=== PATIENT | female | born 2000 | race African-American/Black ===

== ENCOUNTER 2020-02-05 15:47 | Emergency (ER) | payer OTHER, SELFPAY ==
--- NOTE | ~2020-02-05 | XR_ITS ---
XR finger 2nd LT min 2V 02/05/2020 16:22 INDICATION: Patient cut distal tip of the left second digit with hedge cutter. PROCEDURE: 4 views left second finger COMPARISON: No prior studies for comparison. FINDINGS: Fracture, dislocation or subluxation is not identified. There is mild soft tissue deformity of the tuft of the second finger. No underlying osseous abnormality is seen. The soft tissues appear within normal limits. No foreign bodies are identified. IMPRESSION: 1: NO ACUTE BONE OR JOINT ABNORMALITY IDENTIFIED. Reviewed, dictated and finalized at location A.
[2020-02-05 15:52] VITALS: BP 160/102; PULSE 84; RESP 20; TEMP 36.9; O2SAT 100
[2020-02-05] MEDS: TETANUS,DIPHTHERIA,AC PERTUSSIS ADULT (0.5 ML) BOOSTRIX IM (16:06)
[2020-02-05] MEDS: IBUPROFEN 600 MG TABLET PO (16:07)
--- NOTE | 2020-02-05 16:16 | ED.GENADULT ---
HPI - General Adult General Chief complaint: Wound/Laceration <Félix Treadwell PA-C - Last Filed: 02/05/20 17:12> Stated complaint: finger laceration <MIKAELA [place] Last Filed: 02/05/20 17:12> Time Seen by Provider: 02/05/20 15:49 <Félix Treadwell PA-C - Last Filed: 02/05/20 17:12> Source: patient <Félix Treadwell PA-C - Last Filed: 02/05/20 17:12> Mode of arrival: ambulatory <Félix Treadwell PA-C - Last Filed: 02/05/20 17:12> Limitations: no limitations <Félix Treadwell PA-C - Last Filed: 02/05/20 17:12> History of Present Illness HPI narrative: Patient is a 19-year-old female who presents to emergency department for evaluation of injury to the left index finger distal tip where she avulsed some tissue while using a hedge tremor patient notes aching pain worse with touch presents in no distress is unsure to her tetanus status denies other complaints or concerns and is in the room in no distress upon arrival <Félix Treadwell PA-C - Last Filed: 02/05/20 17:12> Related Data Home medications: Home Medications Medication Instructions Recorded Confirmed No Home Medications 02/05/20 02/05/20 <Félix Treadwell PA-C - Last Filed: 02/05/20 17:12> Allergies/adverse reactions: Allergies Allergy/AdvReac Type Severity Reaction Status Date / Time No Known Allergies Allergy Verified 02/05/20 16:01 <Félix Treadwell PA-C - Last Filed: 02/05/20 17:12> Review of Systems Review of Systems: All systems reviewed & are unremarkable except as noted in HPI and below <Félix Treadwell PA-C - Last Filed: 02/05/20 17:12> PMFSH Social History Social History: Social History (Updated 02/05/20 @ 16:17 by Félix Treadwell PA-C) Smoking status: Never smoker Gender identity (if verbalized by the patient): Female <Félix Treadwell PA-C - Last Filed: 02/05/20 17:12> Exam Narrative: Exam Narrative: GENERAL: Well-appearing, well-nourished, and in no acute distress. HEAD: Normocephalic, atraumatic. EYES: PERRLA and EOMI. ENT: Nares clear, no rhinorrhea or epistaxis. Mucous membranes moist. EXTREMITIES: Normal range of motion. No edema. Half centimeter superficial skin defect of the distal tip of the left index finger. Small abrasion that is a superficial wound along the lateral aspect of the third digit distal phalanx SKIN: Warm, dry, no rash. NEURO: No focal deficits. Alert and oriented x3. Neurovascularly intact. Capillary refill less than 2 seconds PSYCH: Normal mood and affect. <Félix Treadwell PA-C - Last Filed: 02/05/20 17:12> Course Vital Signs Vital signs: Vital Signs Temperature 98.4 F 02/05/20 15:52 Pulse Rate 84 02/05/20 15:52 Respiratory Rate 02/05/20 15:52 Blood Pressure 160/102 H 02/05/20 15:52 Pulse Oximetry 100 02/05/20 15:52 Temperature 98.4 F 02/05/20 15:52 Pulse Rate 84 02/05/20 15:52 Respiratory Rate 02/05/20 15:52 Blood Pressure 160/102 H 02/05/20 15:52 Pulse Oximetry 100 02/05/20 15:52 <Félix Treadwell PA-C - Last Filed: 02/05/20 17:12> Vital Signs Temperature 98.4 F 02/05/20 15:52 Pulse Rate 84 02/05/20 15:52 Respiratory Rate 02/05/20 15:52 Blood Pressure 160/102 H 02/05/20 15:52 Pulse Oximetry 100 02/05/20 15:52 Temperature 98.4 F 02/05/20 15:52 Pulse Rate 84 02/05/20 15:52 Respiratory Rate 02/05/20 15:52 Blood Pressure 160/102 H 02/05/20 15:52 Pulse Oximetry 100 02/05/20 15:52 <Annita Iqbal MD - Last Filed: 02/05/20 17:17> Procedures Other Procedure Procedure 1: Other Procedure: Wound was cleaned with Shur-Clens scrub with antibiotic ointment nonadhesive 4 x 4 and Coban placed post procedure <Félix Treadwell PA-C - Last Filed: 02/05/20 17:12> Medical Decision Making MDM Narrative Medical decision making narrative: Patients injury or pain is consistent with musculoskeletal etio
[2020-02-05 17:39] VITALS: BP 129/91; PULSE 75; RESP 20; O2SAT 96
== END 2020-02-05 17:41 | disposition home or self-care (01) ==
PROVIDERS: Emergency Provider Emergency Medicine; PCP Pediatrics
DX: S61.201A Unspecified open wound of left index finger without damage to nail, initial encounter (principal); Z23 Encounter for immunization; W29.3XXA Contact with powered garden and outdoor hand tools and machinery, initial encounter
CPT/HCPCS: 73140; 90471; 90714; 90715; 99282; A9270

== ENCOUNTER 2023-08-29 08:52 | Emergency (ER) | payer OTHER, SELFPAY ==
[2023-08-29] VITALS (18 sets, daily range): BP systolic 123–138; BP diastolic 62–91; PULSE 70–98; RESP 13–20; TEMP 36.8; O2SAT 95–100
--- NOTE | ~2023-08-29 | US_ITS ---
EXAMINATION: US OB <=14 wk fetus w TV DATE: 08/29/2023 13:06 INDICATION: Threatened miscarriage TECHNIQUE: Real-time pelvic ultrasound utilizing both a transvaginal and transabdominal probe was pe rformed. The interpreting radiologist was not present for the study. COMPARISON: None. FINDINGS: The uterus measures 8.2 x 4.2 x 5.5 cm. There is an intrauterine gestational sac. A yolk sac and fet al pole are identified. The crown rump length measures 1.5 cm, which correlates with an estimated ges tational age of 7 weeks and 6 days. heart motion is identified measuring 159 beats per minute ( bpm) by M-mode Doppler. There is an 11 x 6 x 5 mm hypoechoic fluid collection situated between the ca udal margin of the gestational sac and the cervix which could represent blood in the setting of a sub chorionic hemorrhage. The cervical length measures 3.6 cm which is normal. There is a minimal amount of additional hypoechoic fluid likely representing blood within the endocervical canal. The right ova ry measures 3.3 x 1.6 x 1.6 cm. The left ovary measures 3.5 x 2.0 x 2.0 cm. There are a few subcentim eter anechoic follicles along with internal vascular flow on color Doppler at both ovaries. There is no free fluid in the pelvis. IMPRESSION: 1. Single living fetus with heart rate of 159 bpm. 2. Gestational age by ultrasound of 7 weeks 6 day(s) +/- 5 day(s) with ultrasound estimated date of delivery (DYLAN) of 04/10/2024. 3. Small subchorionic hematoma along the inferior margin of the gestational sac and a small amount of likely blood within the endocervical canal. Reviewed, dictated and finalized at location A. [facility] [employer] [facility] IMPRESSION: 1. Single living fetus with heart rate of 159 bpm. 2. Gestational age by ultrasound of 7 weeks 6 day(s) +/- 5 day(s) with ultraso und estimated date of delivery (DYLAN) of 04/10/2024. 3. Small subchorionic hematoma along the inferior margin of the gestational sac and a small amount of likely blood within the endocervical canal.
--- NOTE | 2023-08-29 10:41 | ED.FEMALEGU ---
HPI - Female Genitourinary General Chief complaint: Vaginal Bleeding Stated complaint: vag bleed, preg, n/v Time Seen by Provider: 08/29/23 10:33 Source: patient Mode of arrival: ambulatory Limitations: no limitations History of Present Illness HPI Narrative: Queta is a 23-year-old female patient presenting to the ER today with complaints of vaginal bleeding-spotting with nausea/vomiting. Patient reports she is 9 weeks . Does have slight abdomen cramping. No fever, chills, body aches, or urinary symptoms. Related Data Home Medications Medication Instructions Recorded Confirmed No Home Medications 02/05/20 02/05/20 Allergies Allergy/AdvReac Type Severity Reaction Status Date / Time No Known Allergies Allergy Verified 02/05/20 16:01 Review of Systems Review of Systems: Pertinent positives per HPI. Patient denies any fever, chills, rash, headache, visual changes, dizziness, cough, runny nose, sore throat, shortness of breath, chest pain, palpitations, nausea, vomiting, diarrhea, constipation, or any urinary issues. [facility] Social History Social History (Updated 02/05/20 @ 16:17 by Félix Treadwell, PAM[place]) Smoking status: Never smoker Gender identity (if verbalized by the patient): Female Comments At the time of my signature, I reviewed and agree with the nursing past medical, surgical, social, and family history. There is no relevant family history pertinent to the patient complaint. Exam Narrative: General: Well-developed, well nourished, in no apparent distress. Head: Normocephalic, atraumatic. Cardio: Regular rate and rhythm, s1 and s2 normal, no murmur appreciated. Resp: Clear to auscultation bilaterally, no rhonchi, rales, wheezing or rubs. Abdomen: Soft, pliable, bowel sounds present in all quadrants, very mild tenderness to the lower abdomen/pelvis, no organomegly, no CVAT tenderness. Course Course Emergency Course: Portions of this record may have been created with voice recognition software. Vital Signs Vital signs: Vital Signs Temperature 36.8 C 08/29/23 09:09 Pulse Rate 94 08/29/23 09:09 Respiratory Rate 16 08/29/23 09:09 Blood Pressure 138/91 H 08/29/23 09:09 Pulse Oximetry 100 08/29/23 09:09 Temperature 36.8 C 08/29/23 09:09 Pulse Rate 87 08/29/23 13:32 Respiratory Rate 20 08/29/23 13:32 Blood Pressure 126/62 08/29/23 13:32 Pulse Oximetry 100 08/29/23 13:32 Vital signs reviewed MDM - Female Genitourinary MDM Narrative Medical decision making narrative: At the time of visit patient is resting comfortably on the exam table. Patient appears to be nontoxic. Patient is having vaginal bleeding/spotting with some light cramping. Is approximately 9 weeks Labs: CBC shows 11.1 white blood cell count, H&H 12.5-39.7, platelet counts 310. CMP shows sodium of 137, potassium at 3.8, chloride 105, BUN 6, creatinine 0.5, liver function tests are normal. Beta hCG is 90,149. Blood type is O-positive with a negative antibody screen. Diagnostics: Vaginal ultrasound shows a single living fetus with a heart rate of 159. Estimated gestational date is 7 weeks and 5 days. Small subchorionic hematoma along the inferior margin of the gestational sac Pelvic exam was performed and shows no active bleeding at this time Plan: Discharge home on pelvic rest. Recommend follow-up with OBGYN as soon as possible. Supportive measures were discussed with the patient and they voiced understanding discharge instructions and agrees to treatment plan. Strict return precautions reviewed Differential Diagnosis Differential diagnosis: Likely urinary tract infection, cystitis and other (Threatened miscarriage, vaginal bleeding during , pelvic pain,) Lab Data 08/29/23 10:59 08/29/23 10:59 Labs: Lab Results 08/29/23 Range/Units 10:59 WBC 11.1 H (4.5-10.0) K/mm3 RBC 4.20 (4.2-5.4) M/mm3 Hgb 12.5
[2023-08-29] MEDS: SODIUM CHLORIDE 0.9% IV 1,000 ML 999 ML IV CONT (11:08)
[2023-08-29] MEDS: ONDANSETRON INJ 4 MG/2 ML VIAL IV PUSH (11:08)
[2023-08-29 11:12] LABS: Basophils Percent Auto 0.3 % (0.2-1.2); Eosinophils Percent Auto 0.1 % (0-4.4); Hematocrit 39.7 % (37.0-47.0); Hemoglobin 12.5 g/dL (12.0-15.0); Immature Granulocyte Absolute 0.05 K/mm3 (0.00-0.031); Immature Granulocyte Percent A 0.4 % (0-0.5); Lymphocytes Absolute Auto 2.13 K/mm3 (0.9-3.2); Lymphocytes Percent Auto 19.2 % (18.3-44.2); Mean Corpuscular HGB Conc 31.5 g/dl (32-36); Mean Corpuscular Hemoglobin 29.8 pg (26-34); Mean Corpuscular Volume 94.5 fl (80-100); Mean Platelet Volume 9.7 fl (7.4-10.4); Monocytes Absolute Auto 0.7 K/mm3 (0.1-0.6); Monocytes Percent Auto 6.6 % (2.6-8.5); Neutrophils Absolute Auto 8.2 K/mm3 (1.3-6.7); Neutrophils Percent Auto 73.4 % (45.5-73.1); Platelet Count Result 310 k/mm3 (150-375); Red Cell Distribution Width 12.2 % (11.5-14.5); White Blood Count 11.1 K/mm3 (4.5-10.0)
[2023-08-29 11:23] LABS: Alanine Aminotransferase 18 U/L (6-35); Alkaline Phosphatase 95 U/L (38-126); Anion Gap 9 mmol/L (8-16); Aspartate Amino Transferase 20 U/L (14-36); Bilirubin,Total 0.9 mg/dL (0.2-1.3); Blood Urea Nitrogen 6 mg/dL (7-17); Calcium 8.8 mg/dL (8.4-10.2); Carbon Dioxide 23 mmol/L (22-30); Chloride 105 mmol/L (98-107); Estimated CRCL calculation 153 ml/min; Estimated Glomerular Filt Rate > 60; Glucose 81 mg/dL (65-110); Potassium 3.8 mmol/L (3.4-5.0); Sodium 137 mmol/L (137-145)
== END 2023-08-29 13:53 | disposition home or self-care (01) ==
PROVIDERS: Emergency Provider Nurse Practitioner Family; PCP Nurse Practitioner Family
DX: O20.9 Hemorrhage in early pregnancy, unspecified (principal); Z3A.09 9 weeks gestation of pregnancy
CPT/HCPCS: 36415; 76801; 76817; 80053; 84702; 85025; 85461; 86850; 86900; 86901; 96361; 96374; 99284; J2405; J7030

== ENCOUNTER 2023-09-26 12:02 | Emergency (ER) | payer OTHER, SELFPAY ==
[2023-09-26] VITALS (11 sets, daily range): BP systolic 105–138; BP diastolic 52–86; PULSE 67–94; RESP 14–20; TEMP 36.6; O2SAT 98–100
--- NOTE | 2023-09-26 12:11 | ED.NAVMDI ---
HPI - Nausea/Vomiting/Diarrhea General Chief complaint: Nausea/Vomiting/Diarrhea Stated complaint: NV, Time Seen by Provider: 09/26/23 12:11 Source: patient Mode of arrival: ambulatory Limitations: no limitations History of Present Illness HPI Narrative: 23 years old female drove herself to the emergency room complaining of nausea and frequent vomiting for the last few days/ weeks. Patient is 11 week , denies any abdominal pain, vaginal bleeding or discharge. Patient used to be on Zofran, run out of it 5 days ago. She denies any fever or chills or diarrhea. Related Data Allergies Allergy/AdvReac Type Severity Reaction Status Date / Time No Known Allergies Allergy Verified 02/05/20 16:01 Review of Systems Review of Systems: All systems reviewed & are unremarkable except as noted in HPI and below PMFSH Social History Social History Smoking status: Never smoker Gender identity (if verbalized by the patient): Female Exam Narrative: General appearance: Well-developed, well-nourished Skin: Normal color Head: Normocephalic, nontraumatic Eyes: Clear conjunctiva ENT: Oropharynx normal, ears normal, nose normal Neck: Supple, nontender Chest and respiratory: Airway patent, no respiratory distress, no accessory muscle use Heart: Regular rate/rhythm Abdomen: Soft, nontender, no organomegaly, quiet bowel sounds Vascular: Normal peripheral pulses, normal capillary refill. Musculoskeletal: Normal range of motion, nontender back Neurologic: Alert and oriented ?3, [employer] is normal as tested, no gross motor deficit Course Reevaluation(s) Reevaluation #1: Feeling much better after IV fluid, patient is able to keep fluid and crackers down, feels great to go home. Date: 09/26/23 Time: 14:43 Vital Signs Vital signs: Vital Signs Temperature 36.6 C 09/26/23 12:05 Pulse Rate 94 09/26/23 12:05 Respiratory Rate 20 09/26/23 12:05 Blood Pressure 138/86 09/26/23 12:05 Pulse Oximetry 100 09/26/23 12:05 Oxygen Delivery Room Air 09/26/23 12:05 Temperature 36.6 C 09/26/23 12:05 Pulse Rate 67 09/26/23 12:30 Respiratory Rate 14 09/26/23 12:30 Blood Pressure 114/66 09/26/23 12:40 Pulse Oximetry 100 09/26/23 12:40 Oxygen Delivery Room Air 09/26/23 12:05 MDM - Nausea/Vomiting/Diarrhea MDM Narrative Medical decision making narrative: General appearance: Well-developed, well-nourished Skin: Normal color Head: Normocephalic, nontraumatic Eyes: Clear conjunctiva ENT: Oropharynx normal, ears normal, nose normal Neck: Supple, nontender Chest and respiratory: Airway patent, no respiratory distress, no accessory muscle use Heart: Regular rate/rhythm Abdomen: Soft, nontender, no organomegaly, quiet bowel sounds Vascular: Normal peripheral pulses, normal capillary refill. Musculoskeletal: Normal range of motion, nontender back Neurologic: Alert and oriented ?3, [employer] is normal as tested, no gross motor deficit Differential Diagnosis Differential diagnosis: Likely other ( Electrolyte imbalance, dehydration, urinary tract infection) Medical Records Attestation: I reviewed the patient's medical records. Lab Data Attestation: I reviewed the patient's lab results. 09/26/23 12:18 09/26/23 12:18 Labs: Lab Results
[2023-09-26 12:24] LABS: Basophils Percent Auto 0.2 % (0.2-1.2); Hematocrit 38.6 % (37.0-47.0); Hemoglobin 12.4 g/dL (12.0-15.0); Immature Granulocyte Absolute 0.03 K/mm3 (0.00-0.031); Immature Granulocyte Percent A 0.3 % (0-0.5); Lymphocytes Absolute Auto 1.48 K/mm3 (0.9-3.2); Lymphocytes Percent Auto 15.3 % (18.3-44.2); Mean Corpuscular HGB Conc 32.1 g/dl (32-36); Mean Corpuscular Volume 93.2 fl (80-100); Mean Platelet Volume 9.4 fl (7.4-10.4); Monocytes Absolute Auto 0.5 K/mm3 (0.1-0.6); Monocytes Percent Auto 5.6 % (2.6-8.5); Neutrophils Absolute Auto 7.6 K/mm3 (1.3-6.7); Neutrophils Percent Auto 78.6 % (45.5-73.1); Platelet Count Result 317 k/mm3 (150-375); Red Blood Count 4.14 M/mm3 (4.2-5.4); Red Cell Distribution Width 12.1 % (11.5-14.5); White Blood Count 9.7 K/mm3 (4.5-10.0)
[2023-09-26] MEDS: ONDANSETRON INJ 4 MG/2 ML VIAL 8 MG IV PUSH (12:24)
[2023-09-26] MEDS: SODIUM CHLORIDE 0.9% IV 1,000 ML 999 ML IV CONT ×2 (12:24)
[2023-09-26 12:35] LABS: Alanine Aminotransferase 14 U/L (6-35); Albumin Level 3.9 g/dL (3.5-5.1); Alkaline Phosphatase 81 U/L (38-126); Anion Gap 8 mmol/L (8-16); Aspartate Amino Transferase 19 U/L (14-36); Bilirubin,Total 0.9 mg/dL (0.2-1.3); Blood Urea Nitrogen 6 mg/dL (7-17); Calcium 9.2 mg/dL (8.4-10.2); Carbon Dioxide 23 mmol/L (22-30); Chloride 106 mmol/L (98-107); Estimated Glomerular Filt Rate > 60; Glucose 92 mg/dL (65-110); Lipase 220 U/L (23-300); Potassium 3.7 mmol/L (3.4-5.0); Sodium 137 mmol/L (137-145)
[2023-09-26 12:42] LABS: Appearance Urine Cloudy (Clear); Bacteria Urine 4+ /hpf; Bilirubin Urine Negative (Negative); Blood Urine Negative (Negative); Color Urine Dark Yellow (Yellow); Glucose Urine UA Negative (Negative); Ketones Urine 1+ mg/dL (Negative); Leukocyte Esterase Ur 1+ LEU/UL (Negative); Nitrate Urine Negative (Negative); Protein Urine 1+ mg/dL (Negative); RBC Urine 0-2 /hpf (0-2); Specific Grav Ur 1.031 (1.001-1.035); Squamous Epithelial Cell Urine Many /hpf (Few)
[2023-09-26 12:44] LABS: Add Urine Microscopic? YES
== END 2023-09-26 14:36 | disposition home or self-care (01) ==
PROVIDERS: Emergency Medicine; Emergency Provider Emergency Medicine; PCP Nurse Practitioner Family
DX: O21.0 Mild hyperemesis gravidarum (principal); Z3A.11 11 weeks gestation of pregnancy; Z91.148 Patient's other noncompliance with medication regimen for other reason; T45.0X6A Underdosing of antiallergic and antiemetic drugs, initial encounter
CPT/HCPCS: 36415; 80053; 81001; 81025; 83690; 85025; 87086; 96361; 96374; 99284; J2405; J7030

== ENCOUNTER 2023-09-29 08:16 | Emergency (ER) | payer OTHER, SELFPAY ==
[2023-09-29] VITALS (19 sets, daily range): BP systolic 99–133; BP diastolic 74–93; PULSE 80–110; RESP 17–18; TEMP 36.6; O2SAT 100
[2023-09-29 09:27] LABS: Basophils Percent Auto 0.1 % (0.2-1.2); Hematocrit 36.6 % (37.0-47.0); Hemoglobin 12.3 g/dL (12.0-15.0); Immature Granulocyte Absolute 0.03 K/mm3 (0.00-0.031); Immature Granulocyte Percent A 0.3 % (0-0.5); Lymphocytes Absolute Auto 1.38 K/mm3 (0.9-3.2); Lymphocytes Percent Auto 15.8 % (18.3-44.2); Mean Corpuscular HGB Conc 33.6 g/dl (32-36); Mean Corpuscular Hemoglobin 30.4 pg (26-34); Mean Corpuscular Volume 90.6 fl (80-100); Mean Platelet Volume 9.9 fl (7.4-10.4); Monocytes Absolute Auto 0.5 K/mm3 (0.1-0.6); Neutrophils Absolute Auto 6.8 K/mm3 (1.3-6.7); Neutrophils Percent Auto 77.8 % (45.5-73.1); Platelet Count Result 319 k/mm3 (150-375); Red Blood Count 4.04 M/mm3 (4.2-5.4); Red Cell Distribution Width 11.9 % (11.5-14.5); White Blood Count 8.7 K/mm3 (4.5-10.0)
[2023-09-29 09:36] LABS: Appearance Urine Cloudy (Clear); Bacteria Urine 4+ /hpf; Bilirubin Urine Negative (Negative); Blood Urine Negative (Negative); Color Urine Yellow (Yellow); Glucose Urine UA Negative (Negative); Ketones Urine 4+ mg/dL (Negative); Leukocyte Esterase Ur Trace LEU/UL (Negative); Nitrate Urine Negative (Negative); Non Pathogenic Casts 0-2; Protein Urine 1+ mg/dL (Negative); RBC Urine 0-2 /hpf (0-2); Specific Grav Ur 1.031 (1.001-1.035); Squamous Epithelial Cell Urine Many /hpf (Few)
[2023-09-29 09:37] LABS: Alanine Aminotransferase 12 U/L (6-35); Alkaline Phosphatase 78 U/L (38-126); Anion Gap 12 mmol/L (8-16); Aspartate Amino Transferase 17 U/L (14-36); Bilirubin,Total 1.3 mg/dL (0.2-1.3); Blood Urea Nitrogen 6 mg/dL (7-17); Calcium 9.2 mg/dL (8.4-10.2); Carbon Dioxide 19 mmol/L (22-30); Chloride 104 mmol/L (98-107); Estimated CRCL calculation 147 ml/min; Estimated Glomerular Filt Rate > 60; Glucose 79 mg/dL (65-110); Lipase 385 U/L (23-300); Potassium 3.5 mmol/L (3.4-5.0); Sodium 135 mmol/L (137-145)
[2023-09-29 09:42] LABS: Add Urine Microscopic? YES
[2023-09-29] MEDS: METOCLOPRAMIDE HCL INJ 10 MG/2 ML VIAL IV PUSH (10:06)
[2023-09-29] MEDS: diphenhydrAMINE HCl INJ 50 MG/ML VIAL 25 MG IV PUSH (10:06)
[2023-09-29] MEDS: FAMOTIDINE 20 MG/2 ML VIAL IV PUSH (10:06)
[2023-09-29] MEDS: SODIUM CHLORIDE 0.9% IV 1,000 ML 999 ML IV CONT ×2 (10:06)
--- NOTE | 2023-09-29 10:13 | ED.NAVMDI ---
HPI - Nausea/Vomiting/Diarrhea General Chief complaint: Nausea/Vomiting/Diarrhea Stated complaint: 12 weeks preg, N/V Time Seen by Provider: 09/29/23 09:04 Source: patient Mode of arrival: ambulatory Limitations: no limitations History of Present Illness HPI Narrative: Patient is a 23-year-old female who presents the ED with report of nausea and vomiting. Patient is and currently 12 weeks gestation, confirmed IUP. She reports she has had persistent nausea and vomiting since around 7 weeks. She sees an OBGYN at [facility] and was prescribed Zofran, but denies improvement with this. Reports difficulty keeping any food or fluid down. Feels weak and dehydrated. Reports occasional cramping in her abdomen related to vomiting, but denies significant pain over last few weeks, denies pain currently. Denies diarrhea, constipation, fevers, cough or cold symptoms. Related Data Allergies Allergy/AdvReac Type Severity Reaction Status Date / Time No Known Allergies Allergy Verified 02/05/20 16:01 Review of Systems Review of Systems: CONSTITUTIONAL: Denies fever, chills, or sweats. ENT: Denies rhinorrhea, congestion, sore throat. CARDIOVASCULAR: Denies chest pain. RESPIRATORY: Denies dyspnea. GASTROINTESTINAL: See HPI GENITOURINARY: Denies dysuria or hematuria. All systems reviewed & are unremarkable except as noted in HPI and below PMFSH Social History Social History Smoking status: Never smoker Gender identity (if verbalized by the patient): Female Exam Narrative: GENERAL: Well appearing, obese with BMI of 32.8, non-toxic, in no acute distress. HEAD: Normocephalic, atraumatic. RESPIRATORY: Airway patent, respirations nonlabored. Clear to auscultation bilaterally, no rales, rhonchi, wheezing. CARDIOVASCULAR: borderline tachycardic with regular rhythm without murmurs, rubs, or gallops. ABDOMINAL: Soft, no significant tenderness throughout abdomen, nondistended. Normoactive BS. MUSCULOSKELETAL: Moves all extremities. No gross deformities. SKIN: Warm, dry, normal color. NEURO: A&O X3. Speech clear. Cranial nerves II-XII grossly intact. Steady gait. No ataxic movements. PSYCHIATRIC: Appropriate mood and affect. Normal interaction. Course Vital Signs Vital signs: Vital Signs Temperature 97.9 F 09/29/23 08:16 Pulse Rate 98 09/29/23 08:16 Respiratory Rate 17 09/29/23 08:16 Blood Pressure 133/82 09/29/23 08:16 Pulse Oximetry 100 09/29/23 08:16 Oxygen Delivery Room Air 09/29/23 08:16 Temperature 97.9 F 09/29/23 08:16 Pulse Rate 87 09/29/23 13:59 Respiratory Rate 18 09/29/23 13:59 Blood Pressure 125/74 09/29/23 13:59 Pulse Oximetry 100 09/29/23 13:59 Oxygen Delivery Room Air 09/29/23 08:16 MDM - Nausea/Vomiting/Diarrhea MDM Narrative Medical decision making narrative: patient presented to ED currently 12 weeks gestation reporting persistent nausea and vomiting, not improved with Zofran. Vital signs stable upon arrival. Patient in no acute distress. Will order fluids and nausea medicine. Basic laboratory studies reassuring. No leukocytosis. Bicarb slightly low at 19, otherwise mostly stable electrolytes. Lipase minimally elevated to 385. Patient does not have any upper abdominal tenderness on exam. UA with 4+ ketones, some evidence for bacteria. Will send for culture and treat given status. patient given 2 L of fluid in the ED, in addition to Pepcid, Reglan, Benadryl. On re-evaluation, she is feeling much better with supportive therapy. Able to tolerate p.o. intake. Continues to deny any abdominal pain. Denies vaginal bleeding. Patient has follow-up with her obgyn hospitalist physician on Monday. Advised her to keep this appointment, notify of ED visit, will prescribe Reglan for home use. Also discussed additional supportive therapy to try at home, additional [id number] medication
[2023-09-29 11:42] LABS: Magnesium 1.6 mg/dL (1.6-2.3)
== END 2023-09-29 14:03 | disposition home or self-care (01) ==
PROVIDERS: Emergency Medicine; Emergency Provider Physician Assistant; PCP Nurse Practitioner Family
DX: O21.9 Vomiting of pregnancy, unspecified (principal); O26.891 Other specified pregnancy related conditions, first trimester; R82.71 Bacteriuria; Z3A.12 12 weeks gestation of pregnancy
CPT/HCPCS: 36415; 80053; 81001; 83690; 83735; 85025; 87086; 96361; 96374; 96375; 99284; J1200; J2765; J7030